=== PATIENT | male | born 1980 | race Caucasian/White ===

== ENCOUNTER 2019-02-19 13:12 | Emergency (ER) | payer BC ==
[2019-02-19 14:24] LABS: BASOPHIL % 0.3 % (0.0-0.4); Basophil (Absolute #) 0.04 (0-0.4); Eosinophil % 1.1 % (0.00-5.0); Eosinophil (Absolute #) 0.13 (0-0.5); Granulocyte Absolute (ANC) 8.12 (1.4-6.9); Granulocytes % 66.8 % (36.0-66.0); Hematocrit 43.9 % (42-50); Hemoglobin 14.9 gm/dl (12.5-18.0); Lymphocyte (Absolute #) 3.31 (1.0-4.6); Lymphocytes % 27.2 % (24.0-44.0); Mean Corpuscular Hemoglobin 33.3 pg (26-32); Mean Corpuscular Hgb Concent. 33.9 g/dl (32-36); Mean Platelet Volume 8.7 fl (6-9.5); Monocyte (Absolute #) 0.56 (0.0-1.3); Monocytes % 4.6 % (0.0-12.0); Platelet Count 453 K/mm3 (150-450); Red Blood Count 4.48 M/mm3 (4.1-5.6); Red Cell Distribution Width 11.6 % (11.5-14.0); White Blood Count 12.2 K/mm3 (4.0-10.5)
[2019-02-19 14:39] LABS: ALBUMIN 4.7 g/dL (3.5-5.0); ALKALINE PHOSPHATASE 85 U/L (38-126); ANION GAP 19.9 MEQ/L (5-15); BLOOD UREA NITROGEN 17 mg/dL (9-20); CHLORIDE 108 mmol/L (98-107); Calcium 9.2 mg/dL (8.4-10.2); Carbon Dioxide 19 mmol/L (22-30); Creatinine 1 0.89 mg/dL (0.66-1.25); ETHYL ALCOHOL 204 mg/dL (0-10); Glucose 92 mg/dL (74-106); Potassium 3.8 mmol/L (3.5-5.1); SGOT/AST 28 U/L (17-59); SGPT/ALT 25 U/L (0-50); SODIUM 143 mmol/L (137-145); Total Protein 7.8 g/dL (6.3-8.2)
--- NOTE | 2019-02-19 15:00 | ERPHSYRPT ---
- History of Present Illness Time Seen by Provider: 02/19/19 14:01 Source: patient Exam Limitations: no limitations Patient Subjective Stated Complaint: pt presents per EMS, with PD present as well. PD states that they were called by pt ex girlfriend after she could not reach pt by telephone, she went to check on pt and could not get him to wake up. PD present to residence and wake pt. PD reports a gallon bottle of vodka on scene that was 3/4 consumed. pt told PD " i want to sleep forever". upon triage pt reports that he has been drinking vodka since wednesday after learning that his ex had a date planned. reports that he has recently been in AA, reports he is an alcoholic. denies illicit drug use. pt reports suicidal thoughts. pt reports he did not plan to stop drinking. Triage Nursing Assessment: pt is aox3, pupils perrl, afebrile, resps easy and non labored, lung sounds clear and equal throughout, radial pulses strong and equal, abd soft non tender, bowel sounds present normoactive x4, skin pink warm dry. Physician History: Pt has been drinking large amounts of vodka regularly, has been depressed, became suicidal, but denies any injury or taking any drugs, or toxins to kill himself. He denies any complaints, except mild nonproductive cough, and chronic congestion, denies fever, sore throat, vomiting, chest pain or other complaints. Timing/Duration: gradual onset Severity of Symptoms-Max: severe Severity of Symptoms-Current: severe Context related to: other (alcohol abuse) Associated Symptoms: depressed, No ingestion Previous symptoms: no prior history Allergies/Adverse Reactions: Penicillins Allergy (Verified 02/19/19 13:38) Home Medications: No Reportable Medications [No Reported Medications] 02/19/19 [History] Hx Tetanus, Diphtheria Vaccination/Date Given: Yes Hx Influenza Vaccination/Date Given: Yes Hx Pneumococcal Vaccination/Date Given: No Immunizations Up to Date: Yes - Past Medical History Pertinent Past Medical History: No Neurological History: No Pertinent History ENT History: No Pertinent History Cardiac History: No Pertinent History Respiratory History: No Pertinent History Endocrine Medical History: No Pertinent History Musculoskeletal History: No Pertinent History GI Medical History: No Pertinent History History: No Pertinent History Psycho-Social History: No Pertinent History Male Reproductive Disorders: No Pertinent History - Past Surgical History Past Surgical History: No Neuro Surgical History: No Pertinent History Cardiac: No Pertinent History Respiratory: No Pertinent History Gastrointestinal: No Pertinent History Genitourinary: No Pertinent History Musculoskeletal: No Pertinent History Male Surgical History: No Pertinent History - Social History Smoking Status: Current every day smoker How long have you smoked: 15 Exposure to second hand smoke: No Drug Use: none Patient Lives Alone: Yes Significant Family History: no pertinent family hx - Review of Systems Constitutional: No Symptoms Eyes: No Symptoms Ears, Nose, & Throat: No Symptoms Respiratory: Cough, No Dyspnea Cardiac: No Symptoms Abdominal/Gastrointestinal: No Symptoms Genitourinary Symptoms: No Symptoms Musculoskeletal: No Symptoms Skin: No Symptoms Neurological: No Symptoms Psychological: Alcohol Abuse, Depression, Suicidal Ideations All Other Systems: Reviewed and Negative - Nursing Vital Signs Nursing Vital Signs: Initial Vital Signs Temperature 98.5 F 02/19/19 13:15 Pulse Rate 90 02/19/19 13:15 Respiratory Rate 18 02/19/19 13:15 Blood Pressure 160/103 02/19/19 13:15 O2 Sat by Pulse Oximetry 96 02/19/19 13:15 Pain Scale Pain Intensity 6 - Physical Exam General Appearance: no apparent distress Eyes, Ears, Nose, Throat Exam: normal ENT inspection, pharynx normal, moist mucous membranes Neck Exam: normal inspection, non-tender, supple, No JVD Respiratory Exam: normal breath sounds, lungs clear, airway intact Cardiovascular Exam: regular rate/rhythm, normal heart sounds, normal peripheral pulses, capillary refill <2 sec, No murmur Gastrointestinal/Abdominal Exam: soft, normal bowel sounds, No tenderness, No distention, No mass, No guarding, No ecchymosis, No rebound, No hernia, No organomegaly Extremities Exam: normal inspection, No tenderness Peripheral Pulses: carotid (R): 3+, carotid (L): 3+, dorsalis-pedis (R): 3+, dorsalis-pedis (L): 3+ Current Suicidality: denies suicide plan Neurological Exam: alert, normal mood/affect, calm, oriented x 3 Appearance: appropriate appearance Behavior/Eye Contact/Speech: alert & cooperative Thoughts/Hallucinations: normal thought pattern Skin Exam: normal color, warm, dry, No rash, No petechiae SpO2 Interpretation: normal SpO2: 96 O2 Delivery: Room Air - Course Nursing assessment & vital signs reviewed: Yes EKG Interpreted by Me: RATE (83/min), NORMAL AXIS, NORMAL INTERVALS, NORMAL QRS , NORMAL ST-T - Radiology Exams Chest X-ray Interpretation: Interpreted by me, Negative Ordered Tests: Active Orders 24 hr Category Date Time Status EKG-ER Only STAT Care 02/19/19 13:47 Active IV Insertion STAT Care 02/19/19 13:47 Active CHEST 1 VIEW (PORTABLE) Stat Exams 02/19/19 14:56 Completed ACETAMINOPHEN Stat Lab 02/19/19 14:15 Completed Alcohol [ETHYL ALCOHOL] Stat Lab 02/19/19 22:03 Completed CBC W DIFF Stat Lab 02/19/19 14:15 Completed CMP Stat Lab 02/19/19 14:15 Completed ETHYL ALCOHOL Stat Lab 02/19/19 14:15 Completed SALICYLATE Stat Lab 02/19/19 14:15 Completed UA W/RFX UR CULTURE Stat Lab 02/19/19 16:24 Completed Urine Triage Profile Stat Lab 02/19/19 16:24 Completed Medication Summary Discontinued Medications Generic Name Dose Route Start Last Admin Trade Name Rose Mary PRN Reason Stop Dose Admin Acetaminophen 1,000 mg 02/19/19 23:27 02/19/19 23:29 Tylenol Extra Strength 500 Mg PO 02/19/19 23:28 1,000 mg STAT STA Administration Acetaminophen Confirm 02/19/19 23:28 Tylenol Extra Strength 500 Mg Administered 02/19/19 23:29 Dose 1,000 mg .ROUTE .STK-MED ONE Nicotine 21 mg 02/19/19 17:08 02/19/19 17:17 Nicoderm Cq 21 Mg TOP 02/19/19 17:09 21 mg STAT ONE Administration Lab/Rad Data: Laboratory Result Diagrams 02/19/19 14:15 02/19/19 14:15 Laboratory Results 02/19/19 02/19/19 02/19/19 Range/Units 22:03 16:24 16:24 WBC (4.0-10.5) K/mm3 RBC (4.1-5.6) M/mm3 Hgb (12.5-18.0) gm/dl Hct (42-50) % MCV (78-100) fl MCH (26-32) pg MCHC (32-36) g/dl RDW (11.5-14.0) % Plt Count (150-450) K/mm3 MPV (6-9.5) fl Gran % (36.0-66.0) % Eos # (Auto) (0-0.5) Absolute Lymphs (auto) (1.0-4.6) Absolute Monos (auto) (0.0-1.3) Lymphocytes % (24.0-44.0) % Monocytes % (0.0-12.0) % Eosinophils % (0.00-5.0) % Basophils % (0.0-0.4) % Absolute Granulocytes (1.4-6.9) Basophils # (0-0.4) Sodium (137-145) mmol/L Potassium (3.5-5.1) mmol/L Chloride (98-107) mmol/L Carbon Dioxide (22-30) mmol/L Anion Gap (5-15) MEQ/L BUN (9-20) mg/dL Creatinine (0.66-1.25) mg/dL Estimated GFR ML/MIN Glucose (74-106) mg/dL Calcium (8.4-10.2) mg/dL Total Bilirubin (0.2-1.3) mg/dL AST (17-59) U/L ALT (0-50) U/L Alkaline Phosphatase (38-126) U/L Serum Total Protein (6.3-8.2) g/dL Albumin (3.5-5.0) g/dL Urine Color YELLOW (YELLOW) Urine Appearance CLEAR (CLEAR) Urine pH 5.0 (5-6) Ur Specific [place] 1.012 (1.005-1.025) Urine Protein NEGATIVE (Negative) Urine Ketones SMALL (NEGATIVE) Urine Blood NEGATIVE (0-5) Kali/ul Urine Nitrite NEGATIVE (NEGATIVE) Urine Bilirubin NEGATIVE (NEGATIVE) Urine Urobilinogen NEGATIVE (0-1) mg/dL Ur Leukocyte Esterase NEGATIVE (NEGATIVE) Urine WBC (Auto) 0-2 (0-5) /HPF Urine RBC (Auto) NONE SEEN (0-2) /HPF U Epithel Cells (Auto) NONE (FEW) /HPF Urine Bacteria (Auto) NONE SEEN (NEGATIVE) /HPF Urine Mucus (Auto) SLIGHT (NEGATIVE) /HPF Urine Culture Reflexed NO (NO) Urine Glucose NEGATIVE (NEGATIVE) mg/dL Salicylates (2-20) mg/dL Urine Opiates Level NEGATIVE (NEGATIVE) Ur Methadone NEGATIVE (NEGATIVE) Acetaminophen (10-30) ug/ml Urine Barbiturates NEGATIVE (NEGATIVE) Ur Phencyclidine (PCP) NEGATIVE (NEGATIVE) Urine Amphetamine NEGATIVE (NEGATIVE) U Benzodiazepine Level NEGATIVE (NEGATIVE) Urine Cocaine NEGATIVE (NEGATIVE) Urine Marijuana (THC) NEGATIVE (NEGATIVE) Ethyl Alcohol < 10 (0-10) mg/dL 02/19/19 02/19/19 Range/Units 14:15 14:15 WBC 12.2 H (4.0-10.5) K/mm3 RBC 4.48 (4.1-5.6) M/mm3 Hgb 14.9 (12.5-18.0) gm/dl Hct 43.9 (42-50) % MCV 98.0 (78-100) fl MCH 33.3 H (26-32) pg MCHC 33.9 (32-36) g/dl RDW 11.6 (11.5-14.0) % Plt Count 453 H (150-450) K/mm3 MPV 8.7 (6-9.5) fl Gran % 66.8 H (36.0-66.0) % Eos # (Auto) 0.13 (0-0.5) Absolute Lymphs (auto) 3.31 (1.0-4.6) Absolute Monos (auto) 0.56 (0.0-1.3) Lymphocytes % 27.2 (24.0-44.0) % Monocytes % 4.6 (0.0-12.0) % Eosinophils % 1.1 (0.00-5.0) % Basophils % 0.3 (0.0-0.4) % Absolute Granulocytes 8.12 H (1.4-6.9) Basophils # 0.04 (0-0.4) Sodium 143 (137-145) mmol/L Potassium 3.8 (3.5-5.1) mmol/L Chloride 108 H (98-107) mmol/L Carbon Dioxide 19 L (22-30) mmol/L Anion Gap 19.9 H (5-15) MEQ/L BUN 17 (9-20) mg/dL Creatinine 0.89 (0.66-1.25) mg/dL Estimated GFR > 60.0 ML/MIN Glucose 92 (74-106) mg/dL Calcium 9.2 (8.4-10.2) mg/dL Total Bilirubin 0.40 (0.2-1.3) mg/dL AST 28 (17-59) U/L ALT 25 (0-50) U/L Alkaline Phosphatase 85 (38-126) U/L Serum Total Protein 7.8 (6.3-8.2) g/dL Albumin 4.7 (3.5-5.0) g/dL Urine Color (YELLOW) Urine Appearance (CLEAR) Urine pH (5-6) Ur Specific [place] (1.005-1.025) Urine Protein (Negative) Urine Ketones (NEGATIVE) Urine Blood (0-5) Kali/ul Urine Nitrite (NEGATIVE) Urine Bilirubin (NEGATIVE) Urine Urobilinogen (0-1) mg/dL Ur Leukocyte Esterase (NEGATIVE) Urine WBC (Auto) (0-5) /HPF Urine RBC (Auto) (0-2) /HPF U Epithel Cells (Auto) (FEW) /HPF Urine Bacteria (Auto) (NEGATIVE) /HPF Urine Mucus (Auto) (NEGATIVE) /HPF Urine Culture Reflexed (NO) Urine Glucose (NEGATIVE) mg/dL Salicylates < 1.0 L (2-20) mg/dL Urine Opiates Level (NEGATIVE) Ur Methadone (NEGATIVE) Acetaminophen < 10 L (10-30) ug/ml Urine Barbiturates (NEGATIVE) Ur Phencyclidine (PCP) (NEGATIVE) Urine Amphetamine (NEGATIVE) U Benzodiazepine Level (NEGATIVE) Urine Cocaine (NEGATIVE) Urine Marijuana (THC) (NEGATIVE) Ethyl Alcohol 204 H (0-10) mg/dL - Progress Progress: improved Progress Note: 02/19/19 17:10 Pt has been calm, cooperative, did not vomit, denies pain, stable. He is medically clear for Psychiatric care. Counseled pt/family regarding: lab results, diagnosis, need for follow-up, rad results - Departure Departure Disposition: Transfer (to [facility], accepting Dr Tomas) Clinical Impression: Alcohol abuse, Suicidal ideations Depression Qualifiers: Depression Type: unspecified Qualified Code(s): F32.9 - Major depressive disorder, single episode, unspecified Condition: Stable Critical Care Time: No Referrals: NAOMI DO MD [Primary Care Provider] - Instructions: Depression
[2019-02-19 15:04] LABS: ACETAMINOPHEN < 10 ug/ml (10-30); SALICYLATE < 1.0 mg/dL (2-20)
[2019-02-19 16:31] LABS: Appearance CLEAR (CLEAR); Bilirubin NEGATIVE (NEGATIVE); Blood NEGATIVE Ery/ul (0-5); Glucose NEGATIVE (NEGATIVE); Ketones SMALL (NEGATIVE); Leukocyte Esterase NEGATIVE (NEGATIVE); Mucus SLIGHT /HPF (NEGATIVE); Nitrite NEGATIVE (NEGATIVE); Protein,Urine Dip NEGATIVE (Negative); Specific Gravity 1.012 (1.005-1.025); Urobilinogen NEGATIVE mg/dL (0-1); WBC 0-2 /HPF (0-5)
[2019-02-19 16:45] LABS: Amphetamine,Urine NEGATIVE (NEGATIVE); Barbiturate,Urine NEGATIVE (NEGATIVE); Benzodiazepine,Urine NEGATIVE (NEGATIVE); Cocaine,Urine NEGATIVE (NEGATIVE); Methadone,Urine NEGATIVE (NEGATIVE); Opiate,Urine NEGATIVE (NEGATIVE); PCP,Urine NEGATIVE (NEGATIVE); THC,Urine NEGATIVE (NEGATIVE)
--- NOTE | 2019-02-19 16:46 | XRAY ---
Indication: Chest pain. Comparison: September 05, 2013. Portable chest demonstrates normal heart and lungs. Bony thorax intact. No new/acute findings.
[2019-02-19 16:57] LABS: Bacteria NONE SEEN /HPF (NEGATIVE); RBC NONE SEEN /HPF (0-2)
[2019-02-19] MEDS ORDERED: Nicoderm CQ 21 MG TOP ONE (17:08)
[2019-02-19] MEDS ORDERED: TYLENOL EXTRA STRENGTH 500 MG PO STA (23:27)
[2019-02-19] MEDS ORDERED: TYLENOL EXTRA STRENGTH 500 MG ONE (23:28)
[2019-02-20 00:23] VITALS: O2SAT 96
[2019-02-20 01:34] VITALS: BP 164/98; PULSE 89
== END 2019-02-20 00:55 | disposition short-term general hospital (02) ==
LOC: ED 13:12
DX: F10.10 Alcohol abuse, uncomplicated (principal); R45.851 Suicidal ideations; F32.9 Major depressive disorder, single episode, unspecified
CPT/HCPCS: 36000; 36415; 71045; 80053; 80307; 81001; 85025; 93005; 99285; G0481; A9270-GY; G0480

== ENCOUNTER 2019-03-29 08:46 | Emergency (ER) | payer BC ==
--- NOTE | 2019-03-29 09:03 | ERPHSYRPT ---
- History of Present Illness Time Seen by Provider: 03/29/19 09:03 Source: patient Exam Limitations: no limitations Physician History: 38 y/o white male presents with 2 day h/o right flank pain and an episode of gross hematuria. gross hematuria no longer present but right flank pain has persisted. no h/o kidney stones. pt denies n/v/d. pt denies abd pain. Timing/Duration: day(s) (2), worse Activites at Onset: none Quality: aching Onset Location: right flank Pain Radiation: none Severity of Pain-Max: moderate Severity of Pain-Current: mild Modifying Factors: Improves With: nothing Associated Symptoms: denies symptoms, No abdominal pain, No fever, No chills, No diaphoresis, No nausea, No vomiting, No dysuria, No nocturia, No polyuria, No urinary frequency, No loss of bladder control Sexual intercourse history: non-contributory Allergies/Adverse Reactions: Penicillins Allergy (Verified 02/19/19 13:38) Hx Tetanus, Diphtheria Vaccination/Date Given: Yes Hx Influenza Vaccination/Date Given: Yes Hx Pneumococcal Vaccination/Date Given: No - Past Medical History Pertinent Past Medical History: No Neurological History: No Pertinent History ENT History: No Pertinent History Cardiac History: No Pertinent History Respiratory History: No Pertinent History Endocrine Medical History: No Pertinent History Musculoskeletal History: No Pertinent History GI Medical History: No Pertinent History History: No Pertinent History Psycho-Social History: No Pertinent History Male Reproductive Disorders: No Pertinent History - Past Surgical History Past Surgical History: No Neuro Surgical History: No Pertinent History Cardiac: No Pertinent History Respiratory: No Pertinent History Gastrointestinal: No Pertinent History Genitourinary: No Pertinent History Musculoskeletal: No Pertinent History Male Surgical History: No Pertinent History - Social History Smoking Status: Current every day smoker How long have you smoked: 15 Exposure to second hand smoke: No Drug Use: none Patient Lives Alone: Yes Significant Family History: no pertinent family hx - Review of Systems Constitutional: No Symptoms Eyes: No Symptoms Ears, Nose, & Throat: No Symptoms Respiratory: No Symptoms Cardiac: No Symptoms Abdominal/Gastrointestinal: No Symptoms Genitourinary Symptoms: Flank Pain (right), Other (hematuria) Musculoskeletal: No Symptoms Skin: No Symptoms Neurological: No Symptoms Psychological: No Symptoms Endocrine: No Symptoms Hematologic/Lymphatic: No Symptoms Immunological/Allergic: No Symptoms All Other Systems: Reviewed and Negative - Nursing Vital Signs Nursing Vital Signs: Initial Vital Signs Temperature 98 F 03/29/19 09:00 Pulse Rate 77 03/29/19 09:00 Respiratory Rate 18 03/29/19 09:00 Blood Pressure 155/94 03/29/19 09:00 O2 Sat by Pulse Oximetry 100 03/29/19 09:00 Pain Scale Pain Intensity 6 - Physical Exam General Appearance: mild distress, alert, anxiety Eye Exam: PERRL/EOMI, eyes nml inspection Ears, Nose, Throat Exam: normal ENT inspection, moist mucous membranes Neck Exam: normal inspection, non-tender, supple, full range of motion Respiratory Exam: normal breath sounds, lungs clear, airway intact, No chest tenderness, No respiratory distress Cardiovascular Exam: regular rate/rhythm, normal heart sounds, normal peripheral pulses Gastrointestinal/Abdomen Exam: soft, normal bowel sounds, tenderness, No guarding, No rebound Rectal Exam: not done Back Exam: normal inspection, normal range of motion, CVA tenderness (right), No vertebral tenderness Extremity Exam: normal inspection, normal range of motion, pelvis stable Neurologic Exam: alert, oriented x 3, cooperative, lacquer shader II-XII nml as tested, normal mood/affect, nml cerebellar function, nml station & gait, sensation nml Skin Exam: normal color, warm, dry Lymphatic Exam: No adenopathy SpO2 Interpretation: normal O2 Delivery: Room Air - Course Nursing assessment & vital signs reviewed: Yes Ordered Tests: Active Orders 24 hr Category Date Time Status ABDOMEN AND PELVIS W/0 CONTRAS [CT] Stat Exams 03/29/19 09:23 Completed CULTURE,URINE Stat Lab 03/29/19 09:07 Received UA W/RFX UR CULTURE Stat Lab 03/29/19 09:07 Completed Medication Summary Discontinued Medications Generic Name Dose Route Start Last Admin Trade Name Freq PRN Reason Stop Dose Admin Ketorolac Tromethamine 60 mg 03/29/19 09:24 Toradol 30 Mg Injection IM 03/29/19 09:25 STAT ONE Lab/Rad Data: Laboratory Results 03/29/19 Range/Units 09:07 Urine Color STRAW (YELLOW) Urine Appearance CLEAR (CLEAR) Urine pH 7.0 (5-6) Ur Specific [place] 1.002 (1.005-1.025) Urine Protein NEGATIVE (Negative) Urine Ketones NEGATIVE (NEGATIVE) Urine Blood LARGE (0-5) Kali/ul Urine Nitrite NEGATIVE (NEGATIVE) Urine Bilirubin NEGATIVE (NEGATIVE) Urine Urobilinogen NEGATIVE (0-1) mg/dL Ur Leukocyte Esterase LARGE (NEGATIVE) Urine WBC (Auto) 26-50 (0-5) /HPF Urine RBC (Auto) 3-5 (0-2) /HPF U Epithel Cells (Auto) NONE (FEW) /HPF Urine Bacteria (Auto) FEW (NEGATIVE) /HPF Urine Culture Reflexed YES (NO) Urine Glucose NEGATIVE (NEGATIVE) mg/dL - Progress Progress: improved, re-examined Progress Note: 03/29/19 10:24 ct abd/pelvis-fecal stasis; no other acute process. Counseled pt/family regarding: lab results, diagnosis, need for follow-up, rad results - Departure Departure Disposition: Home Clinical Impression: UTI (urinary tract infection) Condition: Stable Critical Care Time: No Referrals: NAOMI DO MD [Primary Care Provider] - Additional Instructions: drink plenty of fluids. use ibuprofen and tylenol for pain and fever. follow up with primary doctor for persistent symptoms Prescriptions: Ciprofloxacin [Cipro 500 MG] 500 mg PO BID #20 tablet
[2019-03-29 09:18] LABS: Appearance CLEAR (CLEAR); Bacteria FEW /HPF (NEGATIVE); Bilirubin NEGATIVE (NEGATIVE); Blood LARGE Ery/ul (0-5); Glucose NEGATIVE (NEGATIVE); Ketones NEGATIVE (NEGATIVE); Leukocyte Esterase LARGE (NEGATIVE); Nitrite NEGATIVE (NEGATIVE); Protein,Urine Dip NEGATIVE (Negative); Specific Gravity 1.002 (1.005-1.025); Urobilinogen NEGATIVE mg/dL (0-1); WBC 26-50 /HPF (0-5)
[2019-03-29] MEDS ORDERED: TORAdol 30 mg Injection IM ONE (09:24)
--- NOTE | 2019-03-29 10:20 | XRAY ---
Indication: Right flank pain. Hematuria. Multiple contiguous axial images obtained through the abdomen and pelvis without contrast as ordered. Comparison: None Lung bases demonstrates minimal bibasilar dependent atelectasis. No infiltrate or effusion. Heart is not enlarged. Noncontrasted stomach and bowel loops appear nonobstructed. Normal appendix. Moderate diffuse scattered colonic fecal debris throughout. No free fluid/air. Remaining liver, gallbladder, pancreas, spleen, adrenal glands, kidneys, ureters, and bladder appear unremarkable for noncontrast exam. Minimal aortoiliac calcifications without AAA. Osseous structures intact with tiny multilevel thoracolumbar Schmorl nodes. No ventral or inguinal hernias. Impression: 1. Diffuse fecal stasis without obstruction. 2. Remaining CT abdomen/pelvis without contrast exam is negative. CT DI 18.46
[2019-03-29] MEDS ORDERED: TORAdol 30 mg Injection ONE (10:34)
[2019-03-29 10:41] VITALS: BP 165/96; PULSE 73; O2SAT 97
== END 2019-03-29 10:55 | disposition home or self-care (01) ==
LOC: ED 08:46
DX: N39.0 Urinary tract infection, site not specified (principal)
CPT/HCPCS: 74176; 81001; 87077; 87086; 87186; 96372; 99284; J1885

== ENCOUNTER 2019-11-26 09:05 | Emergency (ER) | payer SELFPAY ==
--- NOTE | 2019-11-26 09:28 | ERPHSYRPT ---
- History of Present Illness Time Seen by Provider: 11/26/19 09:15 Source: patient Exam Limitations: no limitations Patient Subjective Stated Complaint: Pt states "I am coughing up blood. It started this morning. I have been sober for 9 months." Triage Nursing Assessment: Pt presented alert and oriented x 3, skin wpd Pt ambualtes with an upright steady gait, able to speak in clear full sentences Pt brought in a bowl with paper towels with blood spots on it. Pt in no apparent respiratory distress. Physician History: The patient is a 39-year-old male with a past medical history significant for cigarette smoking, prior alcoholism and has been sober for the past 9 months on an abuse, anxiety, andPain syndrome for which he takes gabapentin presents with a chief complaint hemoptysis. He reports that he was sick 3 weeks ago with a flu-like illness has had chills, myalgias, and fever of 102 Fahrenheit in addition to a sore throat and headache. The past few weeks, he's had a persistent cough and this morning he started to cough of blood-tinged sputum and became scared and decided to come to the emergency department for further evaluation and management. In addition to his persistent cough. The patient complained of sinus congestion in addition to an ongoing sore throat for which he's been taking over -the-counter cough and cold medicine without any relief. Indoors having "rib pain" whenever he coughs but does not have ongoing chest pain or chest tightness. He denies history of DVT/PE, no malignancy, recent surgery or immobilization. Timing/Duration: week(s) (3) Modifying Factors: Improves With: cold therapy, acetaminophen Associated Symptoms: cough, chills, fever, other (Sore throat, sinus congestion , chest pain with coughing), No nausea, No vomiting, No abdominal pain, No headaches Allergies/Adverse Reactions: Penicillins Allergy (Verified 02/19/19 13:38) Home Medications: Disulfiram 250 mg PO DAILY 11/26/19 [History] Gabapentin 300 mg PO TID 11/26/19 [History] PARoxetine HCl [Paxil] 30 mg PO DAILY 11/26/19 [History] Hx Tetanus, Diphtheria Vaccination/Date Given: No Hx Influenza Vaccination/Date Given: No Hx Pneumococcal Vaccination/Date Given: No Immunizations Up to Date: Yes - Review of Systems Constitutional: Fever, Chills Eyes: No Symptoms Ears, Nose, & Throat: Nose Discharge, Throat Pain, No Ear Pain, No Ear Discharge , No Throat Swelling, No Hoarse, No Painful Swallowing Respiratory: Cough, Dyspnea, Wheezing, Other (Hemoptysis) Cardiac: Other (chest pain with coughing) Abdominal/Gastrointestinal: No Abdominal Pain, No Nausea, No Vomiting Skin: No Symptoms Neurological: No Symptoms Psychological: No Symptoms Endocrine: No Symptoms Hematologic/Lymphatic: No Symptoms, No Blood Clots All Other Systems: Reviewed and Negative - Past Medical History Pertinent Past Medical History: Yes Neurological History: No Pertinent History ENT History: No Pertinent History Cardiac History: No Pertinent History Respiratory History: No Pertinent History Endocrine Medical History: No Pertinent History Musculoskeletal History: No Pertinent History GI Medical History: No Pertinent History History: No Pertinent History Psycho-Social History: Anxiety Male Reproductive Disorders: No Pertinent History - Past Surgical History Past Surgical History: No Neuro Surgical History: No Pertinent History Cardiac: No Pertinent History Respiratory: No Pertinent History Gastrointestinal: No Pertinent History Genitourinary: No Pertinent History Musculoskeletal: No Pertinent History Male Surgical History: No Pertinent History - Social History Smoking Status: Current every day smoker How long have you smoked: years Exposure to second hand smoke: Yes Alcohol Use: Alcoholic has been sober for 9 months Drug Use: none Patient Lives Alone: No Significant Family History: no pertinent family hx - Nursing Vital Signs Nursing Vital Signs: Initial Vital Signs Temperature 98.7 F 11/26/19 09:11 Pulse Rate 96 H 11/26/19 09:11 Respiratory Rate 20 11/26/19 09:11 Blood Pressure 151/95 11/26/19 09:11 O2 Sat by Pulse Oximetry 99 11/26/19 09:11 Pain Scale Pain Intensity 6 - Physical Exam General Appearance: no apparent distress Eye Exam: PERRL/EOMI, eyes nml inspection Ears, Nose, Throat Exam: normal ENT inspection, TMs normal, pharynx normal, moist mucous membranes, No pharyngeal erythema, No tonsillar exudate Neck Exam: normal inspection, supple Respiratory Exam: diminished breath sounds, wheezing, other Cardiovascular Exam: regular rate/rhythm, normal heart sounds, capillary refill <2 sec, No murmur, No friction rub, No gallop, No tachycardia Gastrointestinal/Abdomen Exam: soft, No tenderness, No distention, No mass Back Exam: normal inspection Extremity Exam: normal inspection, other (No signs to suggest DVT), No calf tenderness, No pedal edema, No swelling, No tenderness Neurologic Exam: alert, oriented x 3, other (Seems anxious) Skin Exam: normal color, warm, dry, No rash, No petechiae, No cyanosis, No jaundice SpO2 Interpretation: normal SpO2: 99 O2 Delivery: Room Air - Course Nursing assessment & vital signs reviewed: Yes - Radiology Exams Chest X-ray Interpretation: Interpreted by me, Reviewed by me, Pneumonia (Left lower lobe infiltrate) Ordered Tests: Active Orders 24 hr Category Date Time Status CHEST 2 VIEWS (PA AND LAT) Stat Exams 11/26/19 09:28 Taken BMP Stat Lab 11/26/19 09:35 Completed CBC W DIFF Stat Lab 11/26/19 09:35 Completed D-DIMER QUANTITATIVE Stat Lab 11/26/19 09:35 Completed Lab/Rad Data: Laboratory Result Diagrams 11/26/19 09:35 11/26/19 09:35 Laboratory Results 11/26/19 11/26/19 11/26/19 Range/Units 09:35 09:35 09:35 WBC 11.5 H (4.0-10.5) K/mm3 RBC 3.66 L (4.1-5.6) M/mm3 Hgb 12.1 L (12.5-18.0) gm/dl Hct 36.1 L (42-50) % MCV 98.6 (78-100) fl MCH 33.1 H (26-32) pg MCHC 33.5 (32-36) g/dl RDW 12.0 (11.5-14.0) % Plt Count 570 H (150-450) K/mm3 MPV 8.2 (7.5-11.0) fl Gran % 55.9 (36.0-66.0) % Eos # (Auto) 0.33 (0-0.5) Absolute Lymphs (auto) 3.72 (1.0-4.6) Absolute Monos (auto) 0.97 (0.0-1.3) Lymphocytes % 32.4 (24.0-44.0) % Monocytes % 8.4 (0.0-12.0) % Eosinophils % 2.9 (0.00-5.0) % Basophils % 0.4 (0.0-0.4) % Absolute Granulocytes 6.41 (1.4-6.9) Basophils # 0.05 (0-0.4) D-Dimer 261 (215-500) ng/mL Sodium 137 (137-145) mmol/L Potassium 3.7 (3.5-5.1) mmol/L Chloride 101 (98-107) mmol/L Carbon Dioxide 28 (22-30) mmol/L Anion Gap 11.7 (5-15) MEQ/L BUN 13 (9-20) mg/dL Creatinine 1.03 (0.66-1.25) mg/dL Estimated GFR > 60.0 ML/MIN Glucose 115 H (74-106) mg/dL Calcium 9.5 (8.4-10.2) mg/dL - Progress Progress: unchanged Progress Note: 11/26/19 09:37 Nontoxic in appearance. The patient appears to be in no obvious respiratory distress and has no hypoxia. I suspect the patient may be suffering from a bronchitis or a pneumonia. Given that he has hemoptysis and I cannot rule him out for PE using PERC criteria, I'll obtain a d-dimer to further risk stratify for PE with a Wells Score for PE of 0. 11/26/19 10:03 Chest reviewed and shows evidence of a possible subtle left lower lobe infiltrate. Given the patient's elevated white blood cell count and lung findings on exam going to treat for community acquired pneumonia with doxycycline. His d-dimer was within normal limits I currently have a low gestalt for a PE at this time and given as well score 0 out of her further workup for such. Counseled pt/family regarding: lab results, diagnosis, need for follow-up, rad results, smoking cessation - Departure Departure Disposition: Home Clinical Impression: Elevated blood pressure reading, Community acquired pneumonia, Tobacco abuse, Normocytic anemia Condition: Stable Critical Care Time: No Referrals: NIKOLAS MESSINA MD [ACTIVE STAFF] - Instructions: Quitting Smoking for Older Adults, Pneumonia, Adult (DC) Plan of Treatment: Please follow-up with your primary care provider as needed in the next 3-5 days. Please take your medication as prescribed. Your prescriptions have been sent to your pharmacy Prescriptions: Benzonatate [Tessalon Perle] 100 mg PO [id number] PRN #30 capsule PRN Reason: Cough Albuterol 8 gm Mdi Hfa [Ventolin Hfa MDI] 90 mcg IH Q4H PRN #1 [id number] PRN Reason: Shortness Of Breath Doxycycline Monohydrate 100 mg PO BID 7 Days #14 tablet Naproxen 500 mg [Naprosyn 500 MG] 500 mg PO BID #10 tablet
[2019-11-26 09:36] VITALS: BP 151/95; O2SAT 99
[2019-11-26 09:52] LABS: Absolute Neutrophil Ct (ANC) 6.41 (1.4-6.9); BASOPHIL % 0.4 % (0.0-0.4); Basophil (Absolute #) 0.05 (0-0.4); Eosinophil % 2.9 % (0.00-5.0); Eosinophil (Absolute #) 0.33 (0-0.5); Hematocrit 36.1 % (42-50); Hemoglobin 12.1 gm/dl (12.5-18.0); Lymphocyte (Absolute #) 3.72 (1.0-4.6); Lymphocytes % 32.4 % (24.0-44.0); Mean Cell Volume 98.6 fl (78-100); Mean Corpuscular Hemoglobin 33.1 pg (26-32); Mean Corpuscular Hgb Concent. 33.5 g/dl (32-36); Mean Platelet Volume 8.2 fl (7.5-11.0); Monocyte (Absolute #) 0.97 (0.0-1.3); Monocytes % 8.4 % (0.0-12.0); Neutrophil % 55.9 % (36.0-66.0); Platelet Count 570 K/mm3 (150-450); Red Blood Count 3.66 M/mm3 (4.1-5.6); White Blood Count 11.5 K/mm3 (4.0-10.5)
[2019-11-26 09:56] LABS: ANION GAP 11.7 MEQ/L (5-15); BLOOD UREA NITROGEN 13 mg/dL (9-20); CHLORIDE 101 mmol/L (98-107); Calcium 9.5 mg/dL (8.4-10.2); Carbon Dioxide 28 mmol/L (22-30); Creatinine 1 1.03 mg/dL (0.66-1.25); Glucose 115 mg/dL (74-106); Potassium 3.7 mmol/L (3.5-5.1); SODIUM 137 mmol/L (137-145)
[2019-11-26 10:06] VITALS: PULSE 79
--- NOTE | 2019-11-26 19:02 | XRAY ---
Indication: Fever and cough. Comparison: February 19, 2019. PA/lateral chest again demonstrates normal heart, lungs, and bony thorax.
== END 2019-11-26 10:15 | disposition home or self-care (01) ==
LOC: ED 09:05
DX: R03.0 Elevated blood-pressure reading, without diagnosis of hypertension (principal); J18.9 Pneumonia, unspecified organism; Z72.0 Tobacco use; D64.9 Anemia, unspecified; R04.2 Hemoptysis; Z79.899 Other long term (current) drug therapy; R50.9 Fever, unspecified; R05 Cough
CPT/HCPCS: 36415; 71046; 80048; 85025; 85379; 99284

== ENCOUNTER 2022-05-26 04:59 | Emergency (ER) | payer BC, OTHER ==
--- NOTE | 2022-05-26 05:20 | ERPHSYRPT ---
- History of Present Illness Time Seen by Provider: 05/26/22 05:30 Historian: patient Patient Subjective Stated Complaint: Chest pain off and on since 4pm yesterday Triage Nursing Assessment: pt c/o chest pain off and on since 4pm yesterday. Chest pain started at the end of his shift at work yesterday, stabbing like pain. Pain is midsternal and goes to his back and down his right arm with moving it. Lungs clear, heart tones reg. Physician History: Patient is a 41-year-old male presents to emergency department for evaluation of intermittent chest pain. Chest pain started approximately 4 PM yesterday after his shift at work. Pain described as a stabbing sensation that is primarily substernal. Pain tends to radiate towards his back and down his right arm. Pain reproduced with deep inspiration. Pain improved with rest. No chest ti nnitus. No trauma. No fever. No nausea vomiting or diaphoresis. Symptoms are intermittent symptoms are moderate in intensity. Patient denies history of the same. He voices no other complaints or concerns at this time. Portions of this note were created with voice recognition technology. There may be grammatical, spelling, punctuation or sound alike errors Timing/Duration: yesterday Activities at Onset: none Quality: stabbing Location: substernal Chest Pain Radiation: arm Severity of Pain-Max: moderate Severity of Pain-Current: mild Modifying Factors: Improves With: breathing. Worsens With: coughing, exertion, movement, oxygen, aspirin, change in position Associated Symptoms: denies symptoms Prior Chest Pain/Cardiac Workup: no prior chest pain Nitro Today/Relief: no nitro taken today Aspirin Treatment Today: no aspirin today Allergies/Adverse Reactions: Penicillins Allergy (Verified 05/26/22 05:12) Home Medications: No Reportable Medications [No Reported Medications] 05/26/22 [History] Hx Tetanus, Diphtheria Vaccination/Date Given: Yes Hx Influenza Vaccination/Date Given: Yes Hx Pneumococcal Vaccination/Date Given: No Immunizations Up to Date: Yes Travel Risk - International Travel Have you traveled outside of the country in past 3 weeks: No - Coronavirus Screening Are you exhibiting any of the following symptoms?: No Close contact with a COVID-19 positive Pt in past 14-21 Days: No - Vaccine Status Have you recieved a Covid-19 vaccination: Yes [employer] In[employer]: [employer] - Vaccination Dates Date of 2cond Vaccination (if applicable): 04/17/21 - Review of Systems Constitutional: No Symptoms, No Fever, No Chills Eyes: No Symptoms Ears, Nose, & Throat: No Symptoms Respiratory: No Symptoms, No Cough, No Dyspnea Cardiac: No Symptoms, No Chest Pain, No Edema, No Syncope Abdominal/Gastrointestinal: No Symptoms, No Abdominal Pain, No Nausea, No Vomiting, No Diarrhea Genitourinary Symptoms: No Symptoms, No Dysuria Musculoskeletal: No Symptoms, No Back Pain, No Neck Pain Skin: No Symptoms, No Rash Neurological: No Symptoms, No Dizziness, No Focal Weakness, No Sensory Changes Psychological: No Symptoms Endocrine: No Symptoms Hematologic/Lymphatic: No Symptoms Immunological/Allergic: No Symptoms All Other Systems: Reviewed and Negative - Past Medical History Pertinent Past Medical History: Yes Neurological History: No Pertinent History ENT History: No Pertinent History Cardiac History: No Pertinent History Respiratory History: No Pertinent History Endocrine Medical History: No Pertinent History Musculoskeletal History: Other GI Medical History: No Pertinent History History: No Pertinent History Psycho-Social History: Anxiety Male Reproductive Disorders: No Pertinent History Other Medical History: carpal tunnel - Past Surgical History Past Surgical History: No Neuro Surgical History: No Pertinent History Cardiac: No Pertinent History Respiratory: No Pertinent History Gastrointestinal: No Pertinent History Genitourinary: No Pertinent History Musculoskeletal: No Pertinent History Male Surgical History: No Pertinent History - Social History Smoking Status: Current every day smoker How long have you smoked: 17 yrs Exposure to second hand smoke: Yes Alcohol Use: Alcoholic has been sober for 9 months Drug Use: none Patient Lives Alone: No Significant Family History: no pertinent family hx - Nursing Vital Signs Nursing Vital Signs: Initial Vital Signs Temperature 97.5 F 05/26/22 05:00 Pulse Rate 80 05/26/22 05:00 Respiratory Rate 20 05/26/22 05:00 Blood Pressure 152/97 05/26/22 05:00 O2 Sat by Pulse Oximetry 100 05/26/22 05:00 Pain Scale Pain Intensity 5 - Physical Exam General Appearance: no apparent distress, alert Eye Exam: PERRL/EOMI, eyes nml inspection Ears, Nose, Throat Exam: normal ENT inspection, TMs normal, moist mucous membranes, dry mucous membranes Neck Exam: normal inspection, non-tender, supple, full range of motion Respiratory Exam: normal breath sounds, lungs clear, airway intact, No respiratory distress Cardiovascular Exam: regular rate/rhythm, normal heart sounds, normal peripheral pulses Gastrointestinal/Abdomen Exam: soft, normal bowel sounds, No tenderness, No mass, No guarding Back Exam: normal inspection, No CVA tenderness, No vertebral tenderness Extremity Exam: normal inspection, normal range of motion Neurologic Exam: alert, oriented x 3, cooperative, normal mood/affect, sensation nml, No motor deficits Skin Exam: normal color, warm, dry Lymphatic Exam: No adenopathy SpO2 Interpretation: normal SpO2: 100 O2 Delivery: Room Air - Course Nursing assessment & vital signs reviewed: Yes EKG Interpreted by Me: RATE (76), Sinus Rhythm, NORMAL AXIS, NORMAL INTERVALS Ordered Tests: Active Orders 24 hr Category Date Time Status Cigar Head Piercer STAT Care 05/26/22 05:21 Active EKG-ER Only STAT Care 05/26/22 05:20 Active IV Insertion STAT Care 05/26/22 05:20 Active Pulse Oximetry (ED) STAT Care 05/26/22 05:20 Active CHEST 1 VIEW (PORTABLE) Stat Exams 05/26/22 06:56 Ordered CBC W DIFF Stat Lab 05/26/22 05:20 Completed CMP Stat Lab 05/26/22 05:20 Completed D-DIMER QUANTITATIVE Stat Lab 05/26/22 05:20 Completed NT PRO BNP Stat Lab 05/26/22 05:20 Completed TROPONIN Q3H Lab 05/26/22 05:20 Completed TROPONIN Q3H Lab 05/26/22 08:30 Ordered TROPONIN Q3H Lab 05/26/22 11:30 Ordered TROPONIN Q3H Lab 05/26/22 14:30 Ordered TROPONIN Q3H Lab 05/26/22 17:30 Ordered UA W/RFX CULTURE Stat Lab 05/26/22 Ordered Urine Triage Profile Stat Lab 05/26/22 05:20 Ordered Medication Summary Discontinued Medications Generic Name Dose Route Start Last Admin Trade Name Freq PRN Reason Stop Dose Admin Aspirin 324 mg 05/26/22 05:28 05/26/22 05:30 Aspirin 81 Mg Tab.Chew PO 05/26/22 05:29 324 mg STAT ONE Administration Lab/Rad Data: Laboratory Result Diagrams 05/26/22 05:20 05/26/22 05:20 Laboratory Results 05/26/22 05/26/22 05/26/22 Range/Units 05:20 05:20 05:20 WBC (4.0-10.5) x10^3/uL RBC (4.1-5.6) x10^6/uL Hgb (12.5-18.0) g/dL Hct (42-50) % MCV (78-100) fL MCH (26-32) pg MCHC (32-36) g/dL RDW (11.5-14.0) % Plt Count (150-450) x10^3/uL MPV (7.5-11.0) fL Gran % (36.0-66.0) % Immature Gran % (Auto) (0.00-0.4) % Nucleat RBC Rel Count (0.00-0.1) % Eos # (Auto) (0-0.5) x10^3/uL Immature Gran # (Auto) (0.00-0.03) x10^3u/L Absolute Lymphs (auto) (1.0-4.6) x10^3/uL Absolute Monos (auto) (0.0-1.3) x10^3/uL Absolute Nucleated RBC (0.00-0.01) x10^3u/L Lymphocytes % (24.0-44.0) % Monocytes % (0.0-12.0) % Eosinophils % (0.00-5.0) % Basophils % (0.0-0.4) % Absolute Granulocytes (1.4-6.9) x10^3/uL Basophils # (0-0.4) x10^3/uL D-Dimer 0.29 (0.0-0.50) mg/L Sodium 136 L (137-145) mmol/L Potassium 3.4 L (3.5-5.1) mmol/L Chloride 107 (98-107) mmol/L Carbon Dioxide 22 (22-30) mmol/L Anion Gap 10.6 (5-15) MEQ/L BUN 14 (9-20) mg/dL Creatinine 0.87 (0.66-1.25) mg/dL Estimated GFR > 60.0 ML/MIN Glucose 113 H (74-106) mg/dL Calcium 8.5 (8.4-10.2) mg/dL Total Bilirubin 0.30 (0.2-1.3) mg/dL AST 24 (17-59) U/L ALT 15 (0-50) U/L Alkaline Phosphatase 105 (38-126) U/L Troponin I < 0.012 (0.000-0.034) ng/mL NT-Pro-B Natriuret Pep 47.3 (0-450) pg/mL Serum Total Protein 6.3 (6.3-8.2) g/dL Albumin 3.6 (3.5-5.0) g/dL 05/26/22 Range/Units 05:20 WBC 8.9 (4.0-10.5) x10^3/uL RBC 3.97 L (4.1-5.6) x10^6/uL Hgb 13.2 (12.5-18.0) g/dL Hct 39.6 L (42-50) % MCV 99.7 (78-100) fL MCH 33.2 H (26-32) pg MCHC 33.3 (32-36) g/dL RDW 12.3 (11.5-14.0) % Plt Count 453 H (150-450) x10^3/uL MPV 9.2 (7.5-11.0) fL Gran % 57.0 (36.0-66.0) % Immature Gran % (Auto) 0.2 (0.00-0.4) % Nucleat RBC Rel Count 0.0 (0.00-0.1) % Eos # (Auto) 0.27 (0-0.5) x10^3/uL Immature Gran # (Auto) 0.02 (0.00-0.03) x10^3u/L Absolute Lymphs (auto) 2.89 (1.0-4.6) x10^3/uL Absolute Monos (auto) 0.63 (0.0-1.3) x10^3/uL Absolute Nucleated RBC 0.00 (0.00-0.01) x10^3u/L Lymphocytes % 32.4 (24.0-44.0) % Monocytes % 7.1 (0.0-12.0) % Eosinophils % 3.0 (0.00-5.0) % Basophils % 0.3 (0.0-0.4) % Absolute Granulocytes 5.09 (1.4-6.9) x10^3/uL Basophils # 0.03 (0-0.4) x10^3/uL D-Dimer (0.0-0.50) mg/L Sodium (137-145) mmol/L Potassium (3.5-5.1) mmol/L Chloride (98-107) mmol/L Carbon Dioxide (22-30) mmol/L Anion Gap (5-15) MEQ/L BUN (9-20) mg/dL Creatinine (0.66-1.25) mg/dL Estimated GFR ML/MIN Glucose (74-106) mg/dL Calcium (8.4-10.2) mg/dL Total Bilirubin (0.2-1.3) mg/dL AST (17-59) U/L ALT (0-50) U/L Alkaline Phosphatase (38-126) U/L Troponin I (0.000-0.034) ng/mL NT-Pro-B Natriuret Pep (0-450) pg/mL Serum Total Protein (6.3-8.2) g/dL Albumin (3.5-5.0) g/dL - Progress Progress: improved Air Movement: good Progress Note: Patient endorsed to Dr. Yeh at 7am for final disposition. Chest x ray, UA and final troponin pending. 05/26/22 06:57 Blood Culture(s) Obtained: No Antibiotics given: No Counseled pt/family regarding: lab results, diagnosis, need for follow-up, rad results - Departure Departure Disposition: Home Clinical Impression: Chest pain Condition: Stable Critical Care Time: No Additional Instructions: Discharge/Care Plan ANABELLA,CARLOS BARROW was seen on 05/26/22 in the Emergency Room. The patient was counseled regarding Diagnosis,Lab results, Imaging studies, need for follow up and when to return to the Emergency Room. Prescriptions given: Discharge Note I have spoken with the patient and/or caregivers. I have explained the patient's condition, diagnosis and treatment plan based on the information available to me at this time. I have answered the patient's and/or caregiver's questions and addressed any concerns. The patient and/or caregivers have as good understanding of the patient's diagnosis, condition and treatment plan as can be expected at this point. The vital signs have been stable. The patient's condition is stable and appropriate for discharge from the emergency department. The patient will pursue further outpatient evaluation with the primary care physician or other designated or consulting physician as outlined in the discharge instructions. The patient and/or caregivers are agreeable to this plan of care and follow-up instructions have been explained in detail. The patient and/or caregivers have received these instruction. The patient/and or caregivers are aware that any significant change in condition or worsening of symptoms should prompt an immediate return to this or the closest emergency department or call 911.
[2022-05-26] MEDS ORDERED: BABY ASPIRIN 81 MG CHEW PO ONE (05:28)
[2022-05-26 05:34] LABS: Absolute Neutrophil Ct (ANC) 5.09 x10^3/uL (1.4-6.9); Basophil (Absolute #) 0.03 x10^3/uL (0-0.4); Eosinophil (Absolute #) 0.27 x10^3/uL (0-0.5); Hematocrit 39.6 % (42-50); Hemoglobin 13.2 g/dL (12.5-18.0); Lymphocyte (Absolute #) 2.89 x10^3/uL (1.0-4.6); Lymphocytes % 32.4 % (24.0-44.0); Mean Cell Volume 99.7 fL (78-100); Mean Corpuscular Hemoglobin 33.2 pg (26-32); Mean Corpuscular Hgb Concent. 33.3 g/dL (32-36); Mean Platelet Volume 9.2 fL (7.5-11.0); Monocyte (Absolute #) 0.63 x10^3/uL (0.0-1.3); Monocytes % 7.1 % (0.0-12.0); Platelet Count 453 x10^3/uL (150-450); Red Blood Count 3.97 x10^6/uL (4.1-5.6); Red Cell Distribution Width 12.3 % (11.5-14.0); White Blood Count 8.9 x10^3/uL (4.0-10.5)
[2022-05-26 06:01] LABS: ALBUMIN 3.6 g/dL (3.5-5.0); ALKALINE PHOSPHATASE 105 U/L (38-126); ANION GAP 10.6 MEQ/L (5-15); BLOOD UREA NITROGEN 14 mg/dL (9-20); CHLORIDE 107 mmol/L (98-107); Calcium 8.5 mg/dL (8.4-10.2); Carbon Dioxide 22 mmol/L (22-30); Creatinine 1 0.87 mg/dL (0.66-1.25); EST GLOMERULAR FILTRATION RATE > 60.0 ML/MIN; Glucose 113 mg/dL (74-106); NT PRO BNP 47.3 pg/mL (0-450); Potassium 3.4 mmol/L (3.5-5.1); SGOT/AST 24 U/L (17-59); SGPT/ALT 15 U/L (0-50); SODIUM 136 mmol/L (137-145); Total Protein 6.3 g/dL (6.3-8.2)
[2022-05-26 08:37] VITALS: PULSE 74
--- NOTE | 2022-05-26 08:56 | XRAY ---
Indication: Chest pain 2 days. Comparison: November 26, 2019. Portable chest again demonstrates normal heart and lungs with incidental right apical calcified granuloma. Bony thorax intact. No new/acute findings.
[2022-05-26 10:13] VITALS: BP 148/98; O2SAT 98
[2022-05-26 10:46] LABS: Barbiturate,Urine NEGATIVE (NEGATIVE); Benzodiazepine,Urine NEGATIVE (NEGATIVE); Cocaine,Urine NEGATIVE (NEGATIVE); Methadone,Urine NEGATIVE (NEGATIVE); Opiate,Urine NEGATIVE (NEGATIVE); PCP,Urine NEGATIVE (NEGATIVE); THC,Urine POSITIVE (NEGATIVE)
[2022-05-26 10:51] LABS: Appearance CLEAR (CLEAR); Bilirubin NEGATIVE (NEGATIVE); Dipstick done @ ? MAIN LAB; Glucose NEGATIVE (NEGATIVE); Ketones NEGATIVE (NEGATIVE); Nitrite NEGATIVE (NEGATIVE); Ph 5.5 (5-6); Protein,Urine Dip NEGATIVE (Negative); RBC NEGATIVE Ery/ul (0-5); Specific Gravity 1.015 (1.005-1.025); Urobilinogen 0.2 mg/dL (0-1)
[2022-05-26 11:01] LABS: RBC NONE SEEN /HPF (0-2); Urine Cultured Indicated? NO
[2022-05-26 11:01] LABS: Amphetamine,Urine NEGATIVE (NEGATIVE)
== END 2022-05-26 09:40 | disposition home or self-care (01) ==
LOC: ED 04:59
DX: R07.9 Chest pain, unspecified (principal); Z72.0 Tobacco use
CPT/HCPCS: 36000; 36415; 71045; 80053; 80307; 81015; 83880; 84484; 85025; 85379; 93005; 93041; 94760; 99284; A9270-GY

== ENCOUNTER 2022-08-20 07:39 | Emergency (ER) | payer BC, OTHER ==
--- NOTE | 2022-08-20 08:00 | ERPHSYRPT ---
- History of Present Illness Time Seen by Provider: 08/20/22 07:55 Source: patient Exam Limitations: no limitations Patient Subjective Stated Complaint: pt here for alc withdrawal, he states he took a shot before he came in becausehe was starting to have withdrawals, pt st ates he would like to stop drinking Triage Nursing Assessment: pt alert, tearful at times, hands shaking at times, skin w/d/p, resp easy, states he is under a lot of stress. no edema noted Physician History: Patient is a 41-year-old male presents to our ED requesting assistance for detoxification. Patient admits he is an alcoholic. Patient states he drinks approximately half a gallon of vodka per day. Patient wants to quit drinking. Patient is here for assistance. Patient had a stroke prior to his arrival to our ED. He is not displaying withdrawal symptoms. Patient also states he is homeless. Patient has no complaints. Is otherwise healthy. Patient is otherwise asymptomatic. He voices no other complaints or concerns at this time. Portions of this note were created with voice recognition technology. There may be grammatical, spelling, punctuation or sound alike errors Timing/Duration: today Severity: mild Associated Symptoms: denies symptoms Allergies/Adverse Reactions: Penicillins Allergy (Verified 08/20/22 07:47) Home Medications: No Reportable Medications [No Reported Medications] 08/20/22 [History] Hx Tetanus, Diphtheria Vaccination/Date Given: Yes Hx Influenza Vaccination/Date Given: Yes Hx Pneumococcal Vaccination/Date Given: No Immunizations Up to Date: Yes Travel Risk - International Travel Have you traveled outside of the country in past 3 weeks: No - Coronavirus Screening Are you exhibiting any of the following symptoms?: No Close contact with a COVID-19 positive Pt in past 14-21 Days: No - Vaccine Status Have you recieved a Covid-19 vaccination: Yes [employer]: [employer] - Vaccination Dates Date of 2cond Vaccination (if applicable): 04/17/21 - Review of Systems Constitutional: No Symptoms, No Fever, No Chills Eyes: No Symptoms Ears, Nose, & Throat: No Symptoms Respiratory: No Symptoms, No Cough, No Dyspnea Cardiac: No Symptoms, No Chest Pain, No Edema, No Syncope Abdominal/Gastrointestinal: No Symptoms, No Abdominal Pain, No Nausea, No Vomiting, No Diarrhea Genitourinary Symptoms: No Symptoms, No Dysuria Musculoskeletal: No Symptoms, No Back Pain, No Neck Pain Skin: No Symptoms, No Rash Neurological: No Symptoms, No Dizziness, No Focal Weakness, No Sensory Changes Psychological: No Symptoms Endocrine: No Symptoms Hematologic/Lymphatic: No Symptoms Immunological/Allergic: No Symptoms All Other Systems: Reviewed and Negative - Past Medical History Pertinent Past Medical History: Yes Neurological History: No Pertinent History ENT History: No Pertinent History Cardiac History: No Pertinent History Respiratory History: No Pertinent History Endocrine Medical History: No Pertinent History Musculoskeletal History: Other GI Medical History: No Pertinent History History: No Pertinent History Psycho-Social History: Anxiety Male Reproductive Disorders: No Pertinent History Other Medical History: carpal tunnel - Past Surgical History Past Surgical History: No Neuro Surgical History: No Pertinent History Cardiac: No Pertinent History Respiratory: No Pertinent History Gastrointestinal: No Pertinent History Genitourinary: No Pertinent History Musculoskeletal: No Pertinent History Male Surgical History: No Pertinent History - Social History Smoking Status: Current every day smoker How long have you smoked: 17 yrs Exposure to second hand smoke: Yes Alcohol Use: Alcoholic has been sober for 9 months Drug Use: marijuana Patient Lives Alone: No Significant Family History: no pertinent family hx - Nursing Vital Signs Nursing Vital Signs: Initial Vital Signs Temperature 97.8 F 08/20/22 07:48 Pulse Rate 100 H 08/20/22 07:48 Respiratory Rate 18 08/20/22 07:48 Blood Pressure 173/120 08/20/22 07:48 O2 Sat by Pulse Oximetry 97 08/20/22 07:48 Pain Scale Pain Intensity 4 - Physical Exam General Appearance: no apparent distress, alert Eye Exam: PERRL/EOMI, eyes nml inspection Ears, Nose, Throat Exam: normal ENT inspection, TMs normal, pharynx normal, moist mucous membranes Neck Exam: normal inspection, non-tender, supple, full range of motion Respiratory Exam: normal breath sounds, lungs clear, airway intact, No respiratory distress Cardiovascular Exam: regular rate/rhythm, normal heart sounds, normal peripheral pulses Gastrointestinal/Abdomen Exam: soft, normal bowel sounds, No tenderness, No mass, No guarding Back Exam: normal inspection, normal range of motion, No CVA tenderness, No vertebral tenderness, No rash Extremity Exam: normal inspection, normal range of motion, pelvis stable Neurologic Exam: alert, oriented x 3, cooperative, normal mood/affect, nml cerebellar function, nml station & gait, sensation nml, No motor deficits Skin Exam: normal color, warm, dry, No rash Lymphatic Exam: No adenopathy SpO2 Interpretation: normal SpO2: 97 O2 Delivery: Room Air - Course Nursing assessment & vital signs reviewed: Yes - Progress Progress: improved Progress Note: Patient stable throughout his stay in our ED. Were able to arrange detox as an inpatient via [facility]. Patient stable at time of discharge. Plan of care discussed with patient. He agrees to transfer. He voices no other complaints or concerns this time. Portions of this note were created with voice recognition technology. There may be grammatical, spelling, punctuation or sound alike errors 08/20/22 14:21 Counseled pt/family regarding: diagnosis, need for follow-up - Departure Departure Disposition: Home Clinical Impression: Homeless, Alcoholism, Alcohol use disorder Condition: Stable Critical Care Time: No Referrals: DOCTOR,NO FAMILY [Primary Care Provider] - Follow up/PCP as directed Instructions: Alcohol Use Disorder (DC) Additional Instructions: Discharge/Care Plan ANABELLACARLOS PUSHPA was seen on 08/20/22 in the Emergency Room. The patient was counseled regarding Diagnosis,Lab results, Imaging studies, need for follow up and when to return to the Emergency Room. Prescriptions given: Discharge Note I have spoken with the patient and/or caregivers. I have explained the patient's condition, diagnosis and treatment plan based on the information available to me at this time. I have answered the patient's and/or caregiver's questions and addressed any concerns. The patient and/or caregivers have as good understanding of the patient's diagnosis, condition and treatment plan as can be expected at this point. The vital signs have been stable. The patient's condition is stable and appropriate for discharge from the emergency department. The patient will pursue further outpatient evaluation with the primary care physician or other designated or consulting physician as outlined in the discharge instructions. The patient and/or caregivers are agreeable to this plan of care and follow-up instructions have been explained in detail. The patient and/or caregivers have received these instruction. The patient/and or caregivers are aware that any significant change in condition or worsening of symptoms should prompt an immediate return to this or the closest emergency department or call 911.
[2022-08-20 13:39] VITALS: BP 163/101; PULSE 103
[2022-08-20 14:23] VITALS: O2SAT 97
== END 2022-08-20 13:45 | disposition home or self-care (01) ==
LOC: ED 07:39
DX: F10.20 Alcohol dependence, uncomplicated (principal); Z59.00 Homelessness unspecified; Z72.0 Tobacco use
CPT/HCPCS: 99283